=== PATIENT | male | born 1990 | race Caucasian/White ===

== ENCOUNTER 2016-07-02 09:43 | Inpatient (IN) | payer OTHER ==
[2016-07-02] VITALS: BP 0/0; BP 114/70
[~2016-07-02] VITALS: Ht 180.3 cm; Wt 50.1 kg
[~2016-07-02 09:43] MED LIST: ACETAMINOPHEN-120 ML GT; ACTIGALL300 MG GT; ADULT SUPPOSIT1 EACH PR; ANTISEPTIC SKI237 ML TP; ARTIFICIAL TEAR15 M1 BOTH EYES; CETIRIZINE5 MG/5 ML GT; CHILDMUCINEX PO; CLINDAMYCIN PHO60 GM TP; CONGESTI EAC GT; CONSTULOSE10 GM/15 M PO; CORTIZONE-10 PL57 GM TP; DILANTIN-1125 MG/5 M GT; DIPHENHYDRAMINE50 MG GT; DULCOLAX10 MG PR; FLOVENT 22120 INHALA IH; IBUPROFEN400 MG GT; LEVOTHYROXINE75 MCG GT; MICATIN15 GM TP; MILK OF MAGN TP; NEOSPORIN + P14.2 GM TP; NEURONTIN300 MG GT; PHENOBARBITAL15 MG GT; PHENOBARBITAL30 MG PO; PHENOBARBITAL64.8 MG GT; PHENOBARBITAL97.2 MG GT; PHENOBARBITAL97.2 MG PO; PREVACID SOLUTA30 MG GT; TYLENOL EXTRA500 MG GT; ZONISAMIDE100 MG GT; ZYVOX20 MG/1 ML GT; [UNRECOGNIZED DRUG - OTHER] TP
[2016-07-02 11:15] LABS: BASE EXCESS 2.9 mEq/L (-3 to +3); CARBOXY HGB 2.4 % (0-5); pH 7.37 (7.35-7.45)
[2016-07-02 11:16] LABS: BICARBONATE 29.5 mEq/L (22-26); COMMENTS - BLOOD GASES NEG A+C+; DEVICE HOME VENT; INSPIRATION TIME 1.6 seconds; O2 FLOW 4.5 L/MIN; PCO2 51 mm Hg (35-45); PO2 114 mm Hg (80-100); PRES. SUPPORT 6 CM/H2O; PRESSURE CONTROL VENTILATION 18 CM H20; SITE LR; TIDAL VOLUME 400 ML; TOTAL RESP RATE 17 resp/min
[2016-07-02 12:45] LABS: EOSINOPHIL (%) 0.3 % (0-5); HEMATOCRIT 55.8 % (38.0-50.0); IMMATURE GRANULOCYTE (%) 0.1 % (0.0-0.7); IMMATURE GRANULOCYTE COUNT 0.1 K/uL; MCH 31.7 PG (29.0-34.0); MCHC 33.5 G/DL (30.0-36.0); MCV 94.6 FL (86-99); MEAN PLAT.VOLUME 10.7 uM^3 (9.0-12.4); MONOCYTE (%) 3.2 % (3-12); MONOCYTE COUNT 0.4 K/uL (0-0.8); NEUTROPHIL (%) 88.4 % (45-76); NEUTROPHIL COUNT 10.6 K/uL (1.8-6.4); PLATELET COUNT 270 K/uL (156-360); RBC DIS.WIDTH-CV 13.3 % (11.8-14.6); RBC DIS.WIDTH-SD 45.1 % (39-53)
[2016-07-02 13:29] LABS: CHLORIDE 99 mEq/L (99-109); POTASSIUM 4.6 mEq/L (3.7-5.4); SODIUM 143 mEq/L (136-147)
[2016-07-02 13:31] LABS: GLUCOSE 96 mg/dL (70-99)
[2016-07-02 13:32] LABS: ANION GAP 17 MEQ/L (2-14)
[2016-07-02 13:33] LABS: TOTAL BILIRUBIN 0.5 mg/dL (0.0-1.0)
[2016-07-02 13:35] LABS: ALKALINE PHOSPHATASE 369 IU/L (3-129); GFR ESTIMATE (CALCULATED) > 59 mL/min/
[2016-07-02 13:36] LABS: UREA NITROGEN (BUN) 13 mg/dL (9-23)
[2016-07-02 13:38] LABS: LIPASE 203 U/L (1.0-51.0)
[2016-07-02 14:07] LABS: SAMPLE HEMOLYSIS CHECK 1; SAMPLE ICTERIC CHECK 0; SAMPLE LIPEMIA CHECK 0
[2016-07-02 17:16] LABS: POINT-OF-CARE METER ID UU13113702
[2016-07-02] MEDS ORDERED: PHENOBARBITAL100 MG GT (17:46)
[2016-07-02] MEDS ORDERED: CHILDREN'S MOT120 M2 GT (17:49)
[2016-07-02] MEDS ORDERED: MIRALAX255 GM GT (17:49)
[2016-07-03] VITALS (10 sets, daily range): BP systolic 99–128; BP diastolic 52–96
[2016-07-03 00:41] LABS: METH RESISTANT S AUREUS PCR NEGATIVE (NEGATIVE)
[2016-07-03 00:42] LABS: PROBE CHECK PASS; SPECIMEN PROCESSING CONTROL PASS
[2016-07-03 06:35] LABS: ALKALINE PHOSPHATASE 275 IU/L (3-129); ANION GAP 12 MEQ/L (2-14); CHLORIDE 103 MEQ/L (99-109); GFR ESTIMATE (CALCULATED) > 59 mL/min/; GLUCOSE 95 mg/dL (70-99); LIPASE 48 U/L (1.0-51.0); POTASSIUM 3.7 MEQ/L (3.7-5.4); SAMPLE HEMOLYSIS CHECK 0; SAMPLE ICTERIC CHECK 0; SAMPLE LIPEMIA CHECK 0; SODIUM 141 MEQ/L (136-147); TOTAL BILIRUBIN 0.6 MG/DL (0.0-1.0); UREA NITROGEN (BUN) 10 mg/dL (9-23)
[2016-07-03 06:44] LABS: EOSINOPHIL (%) 1.8 % (0-5); EOSINOPHIL COUNT 0.2 K/uL (0-0.3); HEMATOCRIT 43.3 % (38.0-50.0); IMMATURE GRANULOCYTE (%) 0.1 % (0.0-0.7); LYMPHOCYTE COUNT 2.4 K/uL (1.0-2.8); MCH 30.5 PG (29.0-34.0); MCHC 31.2 G/DL (30.0-36.0); MCV 97.7 FL (86-99); MEAN PLAT.VOLUME 10.9 uM^3 (9.0-12.4); MONOCYTE (%) 8.9 % (3-12); MONOCYTE COUNT 0.9 K/uL (0-0.8); NEUTROPHIL (%) 64.6 % (45-76); NEUTROPHIL COUNT 6.4 K/uL (1.8-6.4); PLATELET COUNT 255 K/uL (156-360); RBC DIS.WIDTH-CV 13.3 % (11.8-14.6); RBC DIS.WIDTH-SD 47.5 % (39-53)
[2016-07-03 06:45] LABS: RED BLOOD COUNT 4.43 M/uL (4.00-5.50)
[2016-07-04] VITALS (11 sets, daily range): BP systolic 0–133; BP diastolic 0–96
[2016-07-04 06:01] LABS: POINT-OF-CARE METER ID UU14174217
[2016-07-04 07:10] LABS: ALKALINE PHOSPHATASE 287 IU/L (3-129); ANION GAP 13 MEQ/L (2-14); CHLORIDE 103 MEQ/L (99-109); GFR ESTIMATE (CALCULATED) > 59 mL/min/; GLUCOSE 103 mg/dL (70-99); POTASSIUM 3.8 MEQ/L (3.7-5.4); SAMPLE HEMOLYSIS CHECK 0; SAMPLE ICTERIC CHECK 0; SAMPLE LIPEMIA CHECK 0; SODIUM 141 MEQ/L (136-147); TOTAL BILIRUBIN 0.7 MG/DL (0.0-1.0); TRIGLYCERIDES 63 MG/DL (Normal: <150); UREA NITROGEN (BUN) 8 mg/dL (9-23)
[2016-07-04 07:34] LABS: LIPASE 15 U/L (1.0-51.0)
[2016-07-04 07:35] LABS: PHENOBARBITAL 70.9 MCG/ML (15-40)
[2016-07-04 12:30] LABS: POINT-OF-CARE METER ID UU14162636
[2016-07-04 23:38] LABS: POINT-OF-CARE METER ID UU14162636
[2016-07-05] VITALS: BP 129/79
[2016-07-05 04:00] VITALS: BP 115/64
[2016-07-05 04:38] LABS: ADD MIUA? YES; BILIRUBIN NEGATIVE; BLOOD LARGE; COLOR YELLOW ((YELLOW)); GLUCOSE (STRIP) NEGATIVE; KETONES 20; LEUKOCYTES TRACE; NITRITE NEGATIVE; PROTEIN (STRIP) NEGATIVE; SPECIFIC GRAVITY 1.012 (1.000-1.030)
[2016-07-05 05:17] LABS: BACTERIA 3+ /HPF; EPITHELIAL CELLS RARE /HPF; MUCUS 1+ /LPF; UCUL ADDED? YES
[2016-07-05 08:00] VITALS: BP 119/79
[2016-07-05 12:00] VITALS: BP 110/77
[2016-07-05 16:00] VITALS: BP 121/78
[2016-07-05 21:00] VITALS: BP 129/90
[2016-07-05 23:46] LABS: POINT-OF-CARE METER ID UU14174217; POINT-OF-CARE USER ID RADDRS44
[2016-07-06 00:30] VITALS: BP 108/96
[2016-07-06 04:00] VITALS: BP 127/84
[2016-07-06 06:07] LABS: HEMATOCRIT 44.5 % (38.0-50.0); MCH 30.7 PG (29.0-34.0); MCHC 31.9 G/DL (30.0-36.0); MCV 96.1 FL (86-99); MEAN PLAT.VOLUME 10.7 uM^3 (9.0-12.4); PLATELET COUNT 255 K/uL (156-360); RBC DIS.WIDTH-CV 12.4 % (11.8-14.6); RED BLOOD COUNT 4.63 M/uL (4.00-5.50); WHITE BLOOD COUNT 8.2 K/uL (4.1-10.2)
[2016-07-06 06:25] LABS: ANION GAP 9 MEQ/L (2-14); CHLORIDE 105 MEQ/L (99-109); GFR ESTIMATE (CALCULATED) > 59 mL/min/; GLUCOSE 133 mg/dL (70-99); MAGNESIUM 1.8 mg/dl (1.3-2.7); POTASSIUM 3.7 MEQ/L (3.7-5.4); SAMPLE HEMOLYSIS CHECK 0; SAMPLE ICTERIC CHECK 0; SAMPLE LIPEMIA CHECK 0; SODIUM 140 MEQ/L (136-147); UREA NITROGEN (BUN) 5 mg/dL (9-23)
[2016-07-06 08:00] VITALS: BP 0/0; BP 100/64
[2016-07-06 12:00] VITALS: BP 112/84
[2016-07-06 13:27] LABS: ADD MIUA? YES; BILIRUBIN NEGATIVE; BLOOD NEGATIVE; COLOR YELLOW ((YELLOW)); GLUCOSE (STRIP) NEGATIVE; KETONES NEGATIVE; LEUKOCYTES NEGATIVE; NITRITE NEGATIVE; PROTEIN (STRIP) NEGATIVE; SPECIFIC GRAVITY 1.011 (1.000-1.030)
[2016-07-06 13:44] LABS: BACTERIA RARE /HPF; EPITHELIAL CELLS RARE /HPF; MUCUS 1+ /LPF; RED BLOOD CELLS 20-30 /HPF (0-5); WHITE BLOOD CELLS 0-5 /HPF (0-5)
[2016-07-06 16:00] VITALS: BP 128/90
[2016-07-06 20:00] VITALS: BP 127/87
[2016-07-07] VITALS: BP 112/82
[2016-07-07 04:00] VITALS: BP 107/56
[2016-07-07 08:00] VITALS: BP 124/81
[2016-07-07] MEDS ORDERED: AUGMENTIN875 MG PO (10:39)
[2016-07-07 12:00] VITALS: BP 123/79
[2016-07-08 21:07] LABS: AP Bone Isoenzyme 25 % (28-66); AP Intestine Isoenzyme 0 % (1-24); AP Liver Isoenzyme 75 % (25-69); AP Macrohepatic Isoenzyme 0 % (<=0); AP Placental Isoenzyme 0 % (<=0); Alkaline Phosphatase, Total 302 U/L (40-115)
== END 2016-07-07 13:17 | disposition home or self-care (01) | DRG 438 ==
LOC: EME 09:43 → 4WEST 18:22 → EDOF 18:22 → 4WEST 22:58
PROVIDERS: Emergency Medicine; Hospitalist; Internal Medicine; Specialist
PROC: 5A09558 Assistance with Respiratory Ventilation, Greater than 96 Consecutive Hours, Intermittent Positive Airway Pressure (ICD-10-PCS; principal; 2016-07-02)
DX: K85.90 Acute pancreatitis without necrosis or infection, unspecified (principal); R65.10 Systemic inflammatory response syndrome (SIRS) of non-infectious origin without acute organ dysfunction; G82.50 Quadriplegia, unspecified; K56.7 Ileus, unspecified; F72 Severe intellectual disabilities; J96.11 Chronic respiratory failure with hypoxia; Z99.11 Dependence on respirator [ventilator] status; G40.909 Epilepsy, unspecified, not intractable, without status epilepticus; G80.9 Cerebral palsy, unspecified; K29.80 Duodenitis without bleeding; K59.00 Constipation, unspecified; K21.9 Gastro-esophageal reflux disease without esophagitis; E03.9 Hypothyroidism, unspecified; R74.8 Abnormal levels of other serum enzymes; L89.150 Pressure ulcer of sacral region, unstageable; Z93.0 Tracheostomy status; Z93.1 Gastrostomy status; Z88.8 Allergy status to other drugs, medicaments and biological substances
CPT/HCPCS: 36600; 71010; 74022; 74177; 76705; 80048; 80053; 80184; 81003; 82803; 82948; 83605; 83690; 83735; 84075 90; 84080 90; 84478; 85025; 85027; 87040; 87070; 87075; 87077; 87086; 87186; 87205; 87641; 87801; 95819; 99202; 99281; 99285; C9113; J0696; J1650; J2020; J2765; J7030; J7042; J7050; J7120